=== PATIENT | male | born 1955 | race Caucasian/White ===

== ENCOUNTER 2019-04-30 22:45 | Emergency (ER) | payer SELFPAY ==
[~2019-04-30] VITALS: Ht 177.8 cm; Wt 109.1 kg
[2019-04-30 22:52] VITALS: Ht 177.8 cm; Wt 109.1 kg
[2019-04-30 23:09] LABS: BASOPHILS 0.9 % (0-2); EOSINOPHILS 3.4 % (0-7); HEMATOCRIT 40.7 % (42.0-54.0); HEMOGLOBIN 14.6 g/dL (13.5-17.5); IMMATURE GRANULOCYTES 0.3 % (0-5); LYMPHOCYTES 34.1 % (15-50); MCH 32.4 pg (26.0-34.0); MCHC 35.9 g/dL (31.0-37.0); MCV 90.2 fL (80.0-100.0); MEAN PLATELET VOLUME 10.4 fL (7.4-10.4); MONOCYTES 6.8 % (2-11); NEUTROPHILS 54.5 % (40-80); PLATELET COUNT 201 10x3/uL (130-400); RBC 4.51 10x6/uL (4.20-6.10); RDW 13.4 % (11.5-14.5); WBC 9.2 10x3/uL (4.8-10.8)
[2019-04-30 23:20] LABS: APTT 26.6 SECONDS (22.8-39.4); INR 1.08 (0.85-1.17); PROTIME 13.5 SECONDS (11.6-15.0)
[2019-04-30 23:24] LABS: ALBUMIN 3.9 g/dL (3.4-5.0); ALKALINE PHOSPHATASE 60 U/L (46-116); ALT (SGPT) 88 U/L (10-68); BILIRUBIN - TOTAL 0.37 mg/dL (0.2-1.3); CALC OSMOLALITY 285 mosm/kg (275-300); CALCIUM 8.9 mg/dL (8.5-10.1); CARBON DIOXIDE 32.2 mmol/L (21.0-32.0); CHLORIDE - SERUM 106 mmol/L (98-107); CREATININE - SERUM 1.1 mg/dL (0.6-1.3); GLUCOSE 141 mg/dL (74-106); POTASSIUM - SERUM 3.6 mmol/L (3.5-5.1); PROTEIN - SERUM 7.5 g/dL (6.4-8.2); SODIUM 142 mmol/L (136-145); UREA NITROGEN 14 mg/dL (7-18); eGFR NON AFRICAN AMERICAN 71 mL/min (90-120)
[2019-04-30 23:36] LABS: CKMB 0.8 U/L (0.0-3.6); CREATINE KINASE 135 UL (21-232); MAGNESIUM - SERUM 2.3 mg/dL (1.8-2.4); THYROID STIMULATING HORMONE 2.69 uIU/mL (0.36-3.74)
[2019-04-30 23:37] LABS: TROPONIN-I < 0.017 ng/mL (0.000-0.060)
[2019-05-01 02:32] LABS: CKMB 0.6 U/L (0.0-3.6); CREATINE KINASE 116 UL (21-232)
[2019-05-01 02:33] LABS: TROPONIN-I < 0.017 ng/mL (0.000-0.060)
[2019-05-01 03:40] VITALS: BP 148/61
== END 2019-05-01 03:40 | disposition home or self-care (01) ==
LOC: D.ER 22:45
PROVIDERS: Family Medicine
DX: G40.909 Epilepsy, unspecified, not intractable, without status epilepticus (principal)